=== PATIENT | female | born 1970 | race Caucasian/White ===

== ENCOUNTER 2025-03-14 06:49 | Emergency (ER) | payer SELFPAY ==
[2025-03-14 06:54] VITALS: BP 156/74; PULSE 65; RESP 20; TEMP 36.7; O2SAT 97
[2025-03-14] MEDS: Lidocaine 2% Viscous 15 ML CUP (07:40)
--- NOTE | 2025-03-14 08:32 | ED.GENADUL_ITS ---
Discharge Plan Disposition Patient Disposition: Home Condition: Stable Discharge Details Clinical Impression: Insect in external auditory canal Primary Care Provider: None,None ED Provider: Ang Calvillo Home Meds and New Rx's Prescriptions: No Action No Known Home Meds Discharge Instructions Instructions: Foreign Body in Ear Additional Instructions: Please follow-up with Dr. Schofield, earthmoving labourer. I contacted Dr. Schofield and is able to see you today in his office. Please follow-up with your primary care physician. Return to the emergency department immediately for any worsening or new concerning symptoms. Referrals: Andrew Schofield MD [ [facility] STAFF PHYSICIAN, ENT Surgical] Discharge Data Discharge Date/Time-TO BE ENTERED AT DEPARTURE: 03/14/25 08:43 HPI General Mode of arrival: ambulatory . Date/Time Provider Initiated Documentation: 03/14/25 07:31 . Limitations to Documentation: no limitations . Information obtained by: patient . HPI Narrative: HISTORY OF PRESENT ILLNESS The patient presents with right ear pain. She reports being awakened by a sensation of something crawling in her right ear, leading to a panic attack and noticing blood in her ear. No history of ear issues. Related Data Home Medications ?Medication ?Instructions ?Recorded ?Confirmed Unknown [No Known Home Meds] 03/14/25 0 03/14/25 Allergies Allergy/AdvReac Type Severity Reaction Status Date / Time No Known Allergies Allergy Unverified 03/14/25 09:05 General Stated Complaint: EarProblem MIKI: 4 Review of Systems ENT Ears, Nose, Mouth, and Throat: Reports as per HPI Exam HENMT Ears: EAC abnormal (Insect adjacent to tympanic membrane, some abrasions noted external canal) Course Vital Signs Vital signs: Vital Signs Temperature 36.7 C 03/14/25 06:54 Pulse 65 03/14/25 06:54 Respiratory Rate 20 03/14/25 06:54 Blood Pressure 156/74 H 03/14/25 06:54 Pulse Oximetry 97 03/14/25 06:54 Temperature 36.7 C 03/14/25 06:54 Pulse 65 03/14/25 06:54 Respiratory Rate 20 03/14/25 06:54 Blood Pressure 156/74 H 03/14/25 06:54 Blood Pressure Position Sitting 03/14/25 06:54 Pulse Oximetry 97 03/14/25 06:54 Oxygen Delivery Method Room Air 03/14/25 06:54 Oxygen Flow Rate 0 03/14/25 06:54 Pain Level 7 03/14/25 07:24 Medical Decision Making ASSESSMENT AND PLAN Initial Assessment: Patient reports sensation of something crawling in her right ear, leading to a panic attack and noticing blood. No history of ear issues. Exam reveals insect in external canal and abrasions. ED Course: - Examined external canal of right ear; insect present. - Abrasions noted. - Lidocaine instilled to numb ear and kill insect. - Attempted to remove insect with alligator forceps was unsuccessful. I contacted earthmoving labourer, Dr. Schofield, he will be happy to see the patient in his office. Patient discharged to go to ENT later todat for additional outpatient treatment. Final Assessment: Insect in external canal of right ear with abrasions. Lidocaine instilled to numb ear and kill insect. Clinical Impression: - Insect in right ear. - Abrasions of external canal. Disposition: - Follow-Up: ENT This document was written with the assistance of AMADA Miranda. The patient consented to its use. PFSH All Active Problems Insect in external auditory canal (Acute) Medical History Asthma in the past Hidradenitis suppurativa of L vulva. Cellulitis bilateral elbows. No I+D. Required prolonged course of abx. Amenorrhea @ age 40. ? early menopause. 2014 DEXA scan. Migraine in the past Family History Mother Heart disease Hyperlipidemia Social History Smoking/Tobacco Use Status: Former Tobacco Use Quit Date: 08/30/22 Smoking risk assessment performed?: Yes Alcohol Intake: current Alcohol Intake frequency: holidays/special occasions only Drug use: Occasionally Substance use type: marijuana Housing: apartment Do you feel safe at home: Yes Do you feel safe in your relationship?: Yes
== END 2025-03-14 08:43 | disposition home or self-care (01) ==
LOC: ER 08:54
PROVIDERS: Emergency Provider Student in an Organized Health Care Education/Training Program
DX: T16.1XXA Foreign body in right ear, initial encounter (principal); Z87.891 Personal history of nicotine dependence; W44.F4XA Insect entering into or through a natural orifice, initial encounter; Y93.89 Activity, other specified; Y92.013 Bedroom of single-family (private) house as the place of occurrence of the external cause
CPT/HCPCS: 99283